=== PATIENT | female | born 1940 | race Caucasian/White ===

== ENCOUNTER 2019-04-20 09:45 | Observation (INO) ==
--- NOTE | 2019-04-08 14:39 | PAT Medication Instructions ---
Medication Instructions Date of Service April 08, 2019 Home Medications acetaminophen [Tylenol] 325 mg PO QID PRN losartan-hydrochlorothiazide 1 tab PO HS melatonin 5 mg PO HS PRN methylphenidate HCl [Ritalin] 10 mg PO BID PRN DO NOT take the morning of surgery methylphenidate HCl [Ritalin] 10 mg PO BID PRN Take morning of surgery With a small sip of water, OTHERWISE NOTHING TO EAT OR DRINK AFTER MIDNIGHT: acetaminophen [Tylenol] 325 mg PO QID PRN (if needed, may be taken up to four hours before surgery) Take evening before surgery acetaminophen [Tylenol] 325 mg PO QID PRN (if needed) losartan-hydrochlorothiazide 1 tab PO HS melatonin 5 mg PO HS PRN (if needed) methylphenidate HCl [Ritalin] 10 mg PO BID PRN (if needed) Other Notes If you have any questions please call us at [phone] or [phone] or [phone] or [phone]
--- NOTE | 2019-04-09 13:39 | Anesthesiology Consultation ---
Date of Service April 09, 2019 Assessment & Plan (1) Encounter for pre-operative examination: S/P TKA 2013 -- SAB and regional block, no issues noted on record. PCP clearance 04/14/2019: "Patient medically stable for planned procedure." Chart Review Chart Review: Acceptable Risk for Surgery and Patient seen in Pre Admission Testing Teaching & Discussion Instructed NPO after midnight before surgery, except medications with 15 cc of water. Medication instructions provided according to the [facility] guidelines. History Surgery Operation Date: 04/20/19 12:30 Proposed Procedures p Left Total Hip Replacement - Nicanor Escalante MD Height/Weight Height: 5 ft 5 in Weight: 80.4 kg Allergies Allergy/AdvReac Type Severity Reaction Status Date / Time morphine AdvReac Mild N/V Verified 03/30/19 08:06 Medications Home Medications Medication Instructions Recorded Confirmed Last Taken acetaminophen [Tylenol] 325 mg PO QID PRN 03/30/19 03/30/19 Unknown losartan-hydrochlorothiazide 1 tab PO HS 03/30/19 03/30/19 Unknown melatonin 5 mg PO HS PRN 03/30/19 03/30/19 Unknown methylphenidate HCl [Ritalin] 10 mg PO BID PRN 03/30/19 03/30/19 Unknown Past Medical History Medical History Degenerative joint disease of left hip Hypertension Interstitial lung disease Suspected on previous chest imaging. +crackles in bases on exam at [facility]. O2 94% on room air, patient asymptomatic. Kidney stones HX OF Exercise / Class Metabolic Activity II 4-5 Yardwork/Stairs/Walk up hill (Denies CP or SOB with 1 FOS, has a 3 story house and does stairs many times per day, just slow 2/2 hip pain) Past Surgical History Surgical History History of right hip replacement History of total left knee replacement Hx of cystoscopy WITH STONE BASKETING Past Anesthesia History No Hx of Anesthesia Complications and No Family Hx of Anesthesia Complications History of PONV History of PONV (2/2 morphine) and Hx of Motion Sickness Social History Smoking Status: Never smoker Do You Dip or Chew Tobacco: No Hx Alcohol Use: No Hx Substance Use: No substance use type: does not use Review of Systems Pt denies any recent chest pain, shortness of breath, palpitations, cough, fever or URI. Physical Exam Vital Signs BP: 107/69 P: 77bpm SPO2: 94% RA T: 98.0 F R: 14 ENMT Mouth: + dental restorations (many crowns), + chipped teeth (upper L molar crown is cracked) and + small oral opening; no loose teeth Thyromental Distance: > or= 3.5 Finger Breadths (3.5) Mallampati Class: III Neck normal visual inspection; neck extension not limited Respiratory normal respiratory effort Auscultation: + crackles (loud, B/L lung bases. Otherwise CTA in other lung [place].) Cardiovascular Rate/Rhythm: regular rate and regular rhythm Heart Sounds: no murmur Vessels: no carotid bruit Testing Laboratory Results 04/09/19 13:50 04/09/19 13:50 PT 10.1 Seconds (9.0-12.0) 04/09/19 13:50 INR 1.0 (0.9-1.1) 04/09/19 13:50 APTT 23.3 Seconds (21.0-31.0) 04/09/19 13:50 Blood Type A Positive 04/09/19 13:50 Antibody Screen NEGATIVE 04/09/19 13:50 Electrocardiogram Date: 04/09/19 Findings: + NSR @ (81bpm) Chest X-Ray FINDINGS: Cardiac silhouette is enlarged, unchanged. Unchanged right hemidiaphragmatic elevation. Mildly worsened peripheral predominant reticular opacities without pneumothorax, large pleural effusion or overt pulmonary edema. Chronic blunting of the posterior costophrenic angles. Degenerative changes of the shoulders and spine. Surgical clips project over the upper abdomen. IMPRESSION: 1. Cardiomegaly. 2. Progressively worsened peripheral prominent reticular opacities of the bilateral lungs are suggestive of worsened interstitial lung disease. A superimposed mild pulmonary edema or atypical pneumonitis considered less likely. This result was forwarded to the PCP for their continued monitoring and follow-up.
--- NOTE | 2019-04-09 14:17 | XRay Report ---
XR chest Pre-admission PA/Lat HISTORY: 78 years-old Female pat preoperative exam. No acute chest complaints COMPARISON: Chest radiograph 06/26/2013, CTA of the chest 11/01/2008. TECHNIQUE: PA and lateral views of the chest FINDINGS: Cardiac silhouette is enlarged, unchanged. Unchanged right hemidiaphragmatic elevation. Mildly worsen ed peripheral predominant reticular opacities without pneumothorax, large pleural effusion or overt p ulmonary edema. Chronic blunting of the posterior costophrenic angles. Degenerative changes of the sh oulders and spine. Surgical clips project over the upper abdomen. IMPRESSION: 1. Cardiomegaly. 2. Progressively worsened peripheral prominent reticular opacities of the bilateral lungs are suggest josé miguel of worsened interstitial lung disease. A superimposed mild pulmonary edema or atypical pneumoniti s considered less likely. ACT 112: Negative or not required by law. The above report was generated using voice recognition software. It may contain grammatical, syntax o r spelling errors. Electronically signed by: Edinson Jeffery M.D. 04/09/2019 2:15 PM
[2019-04-09 14:36] LABS: Basophils # (auto) 0.03 K/uL (0-0.2); Basophils % (auto) 0.3 %; Eosinophils # (auto) 0.36 K/uL (0-0.5); Eosinophils % (auto) 3.7 %; Hematocrit (blood only) 43.8 % (37-47); Hemoglobin 14.3 g/dL (12.0-16.0); Immature Granulocytes # (auto) 0.03 K/uL (0.00-0.02); Immature Granulocytes % (auto) 0.3 %; Lymphocytes # (auto) 2.19 K/uL (1.2-3.4); Lymphocytes % (auto) 22.3 %; Mean Corpuscular Hemoglobin 29.9 pg (25-34); Mean Corpuscular Hgb Conc 32.6 g/dL (32-36); Mean Corpuscular Volume 91.4 fL (80-100); Mean Platelet Volume 11.3 fL (7.4-10.4); Monocytes # (auto) 1.04 K/uL (0.11-0.59); Monocytes % (auto) 10.6 %; Neutrophils # (auto) 6.18 K/uL (1.4-6.5); Neutrophils % (auto) 62.8 %; Platelet Count 283 K/uL (130-400); RDW Coefficient of Variation 13.8 % (11.5-14.5); RDW Standard Deviation 46.4 fL (36.4-46.3); Red Blood Count 4.79 M/uL (4.2-5.4); White Blood Count 9.83 K/uL (4.8-10.8)
[2019-04-09 14:42] LABS: BUN Creatinine Ratio 32.3 (10-20); Blood Urea Nitrogen 21 mg/dl (7-18); Calcium 8.8 mg/dl (8.5-10.1); Carbon Dioxide 30 mmol/L (21-32); Chloride 106 mmol/L (98-107); Creatinine Clr Calc Pharmacy 74.8 ml/min; Est GFR (African American) 98.8; Est GFR (Non-African American) 85.2; Glucose 123 mg/dl (70-99); Potassium 3.8 mmol/L (3.5-5.1); Sodium 141 mmol/L (136-145)
[2019-04-09 14:43] LABS: C Reactive Protein < 0.29 mg/dl (0-0.29)
--- NOTE | 2019-04-09 14:46 | Electrocardiogram Report ---
Test Reason : Blood Pressure : / mmHG Vent. Rate : 081 BPM Atrial Rate : 081 BPM P-R Int : 168 ms QRS Dur : 094 ms QT Int : 406 ms P-R-T Axes : 034 050 024 degrees QTc Int : 471 ms Normal sinus rhythm Normal ECG When compared with ECG of 26-JUN-2013 14:47, No significant change was found Confirmed by Tejas Goodwin ([id number]) on 04/09/2019 2:45:49 PM Referred By: Nicanor Escalante Confirmed By:Tejas Goodwin
[2019-04-09 14:48] LABS: Partial Thromboplastin Ratio 0.9; Partial Thromboplastin Time 23.3 Seconds (21.0-31.0); Prothrombin Time 10.1 Seconds (9.0-12.0)
[~2019-04-20 09:45] MED LIST: ACETAMINOPHEN 500 MG TAB PO SCH; BUPIVACAINE 0.5 % 5 MG/1 ML PF 10ML VIAL ONE; CEFAZOLIN 2000MG 2,000 MG/15 ML SYR IV SCH; FAMOTIDINE 20 MG TAB PO SCH; GABAPENTIN 300 MG CAP PO SCH; LR 500ML BOLUS, THEN 15ML/HR IV SCH; LR 60ML/HR IV SCH; METOCLOPRAMIDE HCL 10 MG TABLET PO SCH; MIDAZOLAM HCL 1 MG/ML 2ML VIAL ONE; TRANEXAMIC ACID 1,000 MG **IV Pre-op IV SCH; fentaNYL citrate 100 MCG/2 ML VIAL ONE
[2019-04-20] MEDS ORDERED: ePHEDrine sulfate 50 MG/ML AMP IV PRN (11:34)
[2019-04-20] MEDS ORDERED: ONDANSETRON INJ 2 MG/ML 2 ML VIAL IV PRN ×2 (11:34→15:50)
[2019-04-20] MEDS ORDERED: fentaNYL citrate 100 MCG/2 ML VIAL IV PRN (11:34)
[2019-04-20] MEDS ORDERED: ATROPINE SULFATE 0.1 MG/ML 10ML SYR IV PRN (11:34)
[2019-04-20] MEDS ORDERED: BUPIVACAINE/EPINEPHRINE 0.5% MPF 1:200,000 10 ML VIAL ONE (12:07)
[2019-04-20] MEDS ORDERED: BACITRACIN INJ 50,000 UNIT VIAL ONE (12:07)
[2019-04-20] MEDS ORDERED: BUPIVACAINE 0.5 % 5 MG/1 ML PF 10ML VIAL ONE (12:32)
--- NOTE | 2019-04-20 12:36 | History & Physical Bridge Note ---
Date of Service April 20, 2019 History & Physical Bridge Note I have examined the patient, reviewed the History & Physical and in the interval since the performance of the History & Physical I have noted the following changes of clinical significance: no changes noted
[2019-04-20] MEDS ORDERED: PROPOFOL IV EMULSION 10 MG/ML 20 ML VIAL IV ONE ×2 (12:59→13:29)
[2019-04-20] MEDS ORDERED: PHENYLEPHRINE 100MCG/ML 5ML SYR ONE (13:20)
[2019-04-20] MEDS ORDERED: ePHEDrine sulfate 50 MG/ML SYR ONE (13:20)
[2019-04-20] MEDS ORDERED: MIDAZOLAM HCL 1 MG/ML 2ML VIAL ONE (13:32)
--- NOTE | 2019-04-20 14:36 | Post Operative Brief Note ---
PG Immediate Post Op with CF Date of Surgery April 20, 2019 Pre & Post Diagnosis Operation Date: 04/20/19 12:30 Pre-Op Diagnosis: Left Hip Advanced Degenerative Joint Disease Post-Op Diagnosis: Left Hip Advanced Degenerative Joint Disease I identified the patient and participated in the time-out.: Yes Procedure Operation Date: 04/20/19 12:30 Actual Procedures p Left Total Hip Arthroplasty--Uncemented(Left) - Nicanor Escalante MD Surgeon Nicanor Escalante MD Director Education Shanta, PAC Estimated Blood Loss 200 Findings Consistent with Post-Op Diagnosis Fluids 1200 cc Specimens Specimen Description: A. Left femoral head Drains Uriarte Catheter (A 16 Jordanian uriarte catheter was inserted by RANDY Otero, without difficulty, clear yellow urine obtained, output to be monitored by Anesthesia.) Anesthesia Type Spinal MAC Complications none Disposition Accompanied Patient To Recovery: Yes Disposition: Recovery Room
--- NOTE | 2019-04-20 15:06 | XRay Report ---
XR hip LT 1V CLINICAL HISTORY: OR MISCOUNT COMPARISON: None. DISCUSSION: 2 crosstable lateral views of the left hip are provided for interpretation. There is a to margie left hip arthroplasty. There is gas present within the soft tissues consistent with recent surger y. No radiopaque sponges or needles are visualized. IMPRESSION: No radiopaque sponges or needles are visualized. ACT 112: Negative or not required by law. Electronically signed by: Giovanny Mensah M.D. 04/20/2019 3:04 PM
--- NOTE | 2019-04-20 15:07 | Anesthesiology Progress Note ---
Date of Service April 20, 2019 Anesthesia Post Procedure Vital Signs Vital Signs: Temp Pulse Resp BP BP Pulse Ox 04/20/19 15:05 73 21 122/68 96 04/20/19 14:55 78 20 118/60 93 04/20/19 14:45 73 21 129/67 95 04/20/19 14:36 36.9 C 84 18 113/73 94 04/20/19 10:33 36.4 C L 75 18 149/88 H 92 Transfer of Care Handoff Completed per policy Notes Mental Status: alert / awake / arousable Patient Amnestic to Procedure: Yes Nausea / Vomiting: adequately controlled Pain: adequately controlled Airway Patency, RR, SpO2: stable & adequate BP & HR: stable & adequate Hydration State: stable & adequate Neuraxial Anesthesia: was administered and sensory block is resolving Anesthetic Complications: no major complications apparent and Pt Satisfied with anesthetic care
--- NOTE | 2019-04-20 15:09 | XRay Report ---
XR hip 1V LT w pelvis CLINICAL HISTORY: Postop hip arthroplasty COMPARISON: September 2008 DISCUSSION: There is no change in the appearance of the total right hip arthroplasty. Now evident is a total left hip arthroplasty. The acetabular and femoral components appear well seated. There is no dislocation. There are overlying skin jono. There is air present within the soft tissues. IMPRESSION: Interval total left hip arthroplasty. No dislocation. ACT 112: Negative or not required by law. Electronically signed by: Giovanny Mnesah M.D. 04/20/2019 3:07 PM
[2019-04-20] MEDS ORDERED: ALUMINUM/MAGNESIUM SUSP 30 ML UDC PO PRN (15:50)
[2019-04-20] MEDS ORDERED: NON-FORMULARY MEDICATION (Melatonin 5 MG) PO PRN (15:50)
[2019-04-20] MEDS ORDERED: HYDROmorphone INJ 0.5 MG/0.5 ML SYR IV PRN (15:50)
[2019-04-20] MEDS ORDERED: bisacodyL 10 MG SUPP PR PRN (15:50)
[2019-04-20] MEDS ORDERED: MAGNESIUM HYDROXIDE SUSP 30 ML UDC PO PRN (15:50)
[2019-04-20] MEDS ORDERED: NALOXONE HCL 0.4 MG/1 ML VIAL/CARP IV PRN (15:50)
[2019-04-20] MEDS ORDERED: METOCLOPRAMIDE HCL INJ 5 MG/ML 2 ML VIAL IV PRN (15:50)
[2019-04-20] MEDS ORDERED: METHYLPHENIDATE HCL 10 MG TABLET PO PRN (15:50)
[2019-04-20] MEDS: SODIUM CHLORIDE 0.9% 1000ML 1,000 ML IV SCH (16:58)
--- NOTE | 2019-04-20 18:31 | Operative Report ---
Post Operative Report Pre & Post Diagnosis Operation Date: 04/20/19 12:30 Pre-Op Diagnosis: Left Hip Advanced Degenerative Joint Disease Post-Op Diagnosis: Left Hip Advanced Degenerative Joint Disease I identified the patient and participated in the time-out.: Yes Procedure Operation Date: 04/20/19 12:30 Actual Procedures p Left Total Hip Arthroplasty--Uncemented(Left) - Nicanor Escalante MD Surgeon Nicanor Escalante MD Human Resources Hr Generalist Shanta, PAC Estimated Blood Loss 200 Findings Consistent with Post-Op Diagnosis Operative findings revealed advanced left hip DJD. 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 She had a large hip joint effusion. Moderate sized synovitis. Significant anterior acetabular osteophytes. Significant medial osteophyte. Fluids 1200 cc Specimens Left femoral head sent for pathology. Drains None. Anesthesia Type Spinal MAC Complications Upon drilling the holes for the sutures to be placed in the greater trochanter at the end the case the drill bit did break off inside the trochanter. I did spend about 10 minutes trying to locate this but was unsuccessful. I got an x- ray which showed a deep in the bone next of the implant deep in the bone. I decided that it was not worth the damage of destroying the bone to get this drill bit out. I cannot imagine how it would give her any problem and is it similar to a screw and we elect to leave this in. The patient was informed of this on postoperative rounds. All questions were answered. Disposition Accompanied Patient To Recovery: Yes Disposition: Recovery Room Indications Patient is a 78-year-old very active female who is about 10 years out from right hip replacement. Over the past year she is developed increased pain discomfort in her left hip that is becoming extremely painful and bothersome. It is affecting her quality of life and ability maintain an active lifestyle. She elected proceed with surgical treatment. X-rays show advanced left hip arthritis. This progressed significantly over the past year. Description of Procedure Operative implants consisted of: 1. Biomet G7 size 52 mm acetabular shell. 2. 6.5 cancellus acetabular screws 1 of 35 mm length and 120 mm length. 3. An apex hole eliminator. 4. 52 mm / 32 mm highly cross-linked polyethylene liner with a womack placed inferior and posterior. 5. Vladimir Corail size 11 KLA femoral stem. 6. A +5/32 mm ceramic articular ball. Patient was taken to the operating room identified and placed on the operating table supine position protectors were properly padded. IV antibiotics were by anesthesia team. A spinal anesthetic had been implemented holding area. Chamberlain cath was placed in sterile fashion with the patient then placed in the right lateral decubitus position. Rolls placed. Stulberg hip positioner was used for positioning. Left hip and leg were then prepped and draped in usual sterile fashion. A posterior lateral approach to the left hip was then performed through a curvilinear incision centered over the greater trochanter. Sharp dissection was carried through subcutaneous tissue down to level the IT band gluteal fascia the IT band gluteal fascia incised longitudinally in line the skin incision. The underlying greater bursa was excised. The piriformis and external rotators were tagged and taken off the posterior aspect hip joint capsule. Great care was taken throughout the procedure to protect sciatic nerve at all times. Posterior capsulotomy was then performed leaving a large flap for later repair. Hip was internally rotated and dislocated. Femoral neck osteotomy cut was made with Final Cut 12 mm above the lesser trochanter. Femoral head was removed and sent for pathology. Femur was retracted anteriorly. Attention drawn the acetabulum. The acetabular labrum was excised. The pulmonary fat was excised. Sequential reaming the acetabulum was then performed again with size 45 reamer and progressing up to 51. A 52 mm Biomet G7 acetabular shell was then placed in about 40 degrees lateral opening and 20 degrees of anteversion. It was fixed with two 6.5 cancellus acetabular screws. A trial liner was placed. Attention drawn the femur. The proximal femur was entered with a cookie-cutter followed by canal finder. Then broached beginning with size 8 and progressing up to 11. Got excellent fit and 11. A calcar reamer was used to smooth and off the calcar. Then trialed the hip and the +5/32 mm ceramic articular ball plug to provide full stability in full extension and external rotation flexion to 90 degrees internal rotation over 50 degrees. I did elect to place a womack inferior and posterior to maximize her stability in flexion. Soft tissue tension seemed appropriate. Leg lengths seem equal. I elected to place these implants. All trial implants were removed. An apex hole eliminator was placed. Highly cross-linked polyethylene liner was placed with a womack placed inferior and posterior. A Vladimir size 11 KLA femoral stem was impacted in position. +5/32 mm ceramic articular ball was placed. Hip was located once again found to be stable. Attention drawn toward closing. The wound was irrigated copious also pulsatile lavage solution. I did inject locally with 60 cc of 5% Marcaine with epinephrine. The posterior capsule and external rotators were then repaired through drill holes in the posterior trochanter with #2 Tycron stitch suture. Upon placing the inferior hole the drill bit did break off. I re-drilled a hole. I spent about 10 to 15 minutes trying to relocate the drill bit and in the bone. I did eventually take an x- ray and it was deep within the bone. I elected not to do any further damage to the bone and leave this in place as I could not imagine how it could give her any problem and further bone destruction could give her problem. Therefore we elected to leave it in place. The sutures were tied. The wound was irrigated again. The IT band gluteal fascia then closed in 1 PDS suture in a running fashion the subcutaneous tissue then closed with 2 layers the deep layer #1 Vicryl suture and subcutaneous tissues with 2-0 Dexon suture in a buried interrupted fashion the skin was closed with skin jono. Once again an x-ray was brought in to verify the location of the drill bit which was inside the bone and not anywhere in the joint. The patient then transferred to the recovery room in stable condition. The patient tolerated procedure well no additional complications. I attest to the content of the Intraoperative Record and any orders documented therein. Any exceptions are noted below.
[2019-04-20] MEDS: KETOROLAC TROMETHAMINE 15 MG/ML VIAL IV SCH ×2 (18:36→22:18)
[2019-04-20] MEDS: FERROUS GLUCONATE 324 MG TAB PO SCH (18:39)
[2019-04-20] MEDS: ASCORBIC ACID 500 MG TAB PO SCH (18:39)
[2019-04-20] MEDS: TRAMADOL HCL 50 MG TABLET PO PRN (19:14)
[2019-04-20] MEDS: CEFAZOLIN 2000MG 2,000 MG/15 ML SYR IV SCH (20:36)
[2019-04-20] MEDS ORDERED: TRANEXAMIC ACID / 0.7% NACL 1,000 MG/100 ML BAG IV SCH (20:39)
[2019-04-20] MEDS ORDERED: SENNA 8.6 MG TAB PO SCH (21:00)
[2019-04-20] MEDS ORDERED: LOSARTAN/HCTZ 50/12.5MG TAB PO SCH (21:00)
[2019-04-20] MEDS ORDERED: PRAVASTATIN SOD 20 MG TAB PO SCH (21:00)
[2019-04-20] MEDS: ASPIRIN 81 MG ECTAB PO SCH (21:36)
[2019-04-20] MEDS: ACETAMINOPHEN 500 MG TAB PO SCH (21:36)
[2019-04-20] MEDS: DOCUSATE SODIUM 100 MG CAP PO SCH (21:36)
[2019-04-21] MEDS: SODIUM CHLORIDE 0.9% 1000ML 1,000 ML IV SCH (03:07)
[2019-04-21] MEDS: TRAMADOL HCL 50 MG TABLET PO PRN ×2 (03:29→10:32)
[2019-04-21] MEDS: CEFAZOLIN 2000MG 2,000 MG/15 ML SYR IV SCH (05:03)
[2019-04-21] MEDS: KETOROLAC TROMETHAMINE 15 MG/ML VIAL IV SCH ×2 (05:04→11:00)
[2019-04-21] MEDS: ACETAMINOPHEN 500 MG TAB PO SCH ×2 (05:04→13:06)
[2019-04-21 05:35] LABS: Basophils # (auto) 0.02 K/uL (0-0.2); Basophils % (auto) 0.1 %; Eosinophils # (auto) 0.06 K/uL (0-0.5); Eosinophils % (auto) 0.4 %; Hematocrit (blood only) 36.7 % (37-47); Hemoglobin 12.1 g/dL (12.0-16.0); Immature Granulocytes # (auto) 0.04 K/uL (0.00-0.02); Immature Granulocytes % (auto) 0.3 %; Lymphocytes # (auto) 1.29 K/uL (1.2-3.4); Lymphocytes % (auto) 9.5 %; Mean Corpuscular Hemoglobin 30.2 pg (25-34); Mean Corpuscular Volume 91.5 fL (80-100); Mean Platelet Volume 10.9 fL (7.4-10.4); Monocytes # (auto) 1.32 K/uL (0.11-0.59); Monocytes % (auto) 9.7 %; Neutrophils # (auto) 10.88 K/uL (1.4-6.5); Platelet Count 240 K/uL (130-400); RDW Coefficient of Variation 13.7 % (11.5-14.5); RDW Standard Deviation 45.9 fL (36.4-46.3); Red Blood Count 4.01 M/uL (4.2-5.4); White Blood Count 13.61 K/uL (4.8-10.8)
[2019-04-21 06:07] LABS: BUN Creatinine Ratio 32.9 (10-20); Est GFR (African American) 108.9; Potassium 3.3 mmol/L (3.5-5.1)
--- NOTE | 2019-04-21 07:56 | Anesthesiology Progress Note ---
Date of Service April 21, 2019 Anesthesia Post Procedure Vital Signs Vital Signs: Temp Pulse Pulse Resp BP BP Pulse Ox 04/21/19 07:15 37.0 C 81 18 117/74 92 04/21/19 03:22 36.6 C 75 16 131/83 91 04/20/19 23:02 36.5 C 76 16 130/82 97 04/20/19 21:43 36.6 C 78 18 134/83 98 04/20/19 20:33 83 18 148/83 H 95 04/20/19 18:45 36.6 C 77 18 164/94 H 96 04/20/19 16:45 36.6 C 75 18 146/91 H 92 04/20/19 16:15 36.6 C 67 18 127/80 98 04/20/19 15:45 36.5 C 70 18 125/80 96 04/20/19 15:25 66 18 118/80 100 04/20/19 15:15 36.4 C L 68 16 118/74 100 04/20/19 15:05 73 21 122/68 96 04/20/19 14:55 78 20 118/60 93 04/20/19 14:45 73 21 129/67 95 04/20/19 14:36 36.9 C 84 18 113/73 94 04/20/19 10:33 36.4 C L 75 18 149/88 H 92 Pain Intensity Left Hip: Pain Intensity: 0 Notes Mental Status: alert / awake / arousable and participated in evaluation Patient Amnestic to Procedure: Yes Nausea / Vomiting: adequately controlled Pain: adequately controlled Airway Patency, RR, SpO2: stable & adequate BP & HR: stable & adequate Hydration State: stable & adequate Neuraxial Anesthesia: was administered and sensory block resolved Anesthetic Complications: no major complications apparent and Pt Satisfied with anesthetic care
[2019-04-21] MEDS: FERROUS GLUCONATE 324 MG TAB PO SCH (08:22)
[2019-04-21] MEDS: DOCUSATE SODIUM 100 MG CAP PO SCH (08:22)
[2019-04-21] MEDS: ASPIRIN 81 MG ECTAB PO SCH (08:23)
[2019-04-21] MEDS: ASCORBIC ACID 500 MG TAB PO SCH (08:23)
[2019-04-21] MEDS ORDERED: MULTIVITAMIN TAB PO SCH (09:00)
[2019-04-21] MEDS ORDERED: POTASSIUM CHLORIDE 20 MEQ TABCR PO ONE (13:43)
--- NOTE | 2019-04-21 13:54 | Progress Note ---
DATE: 04/21/2019 SUBJECTIVE: A 78-year-old white female postop day 1 from a left hip replacement. She is doing well. Pain has been pretty well controlled with medicines. Therapy went well. Denies any chest pain or shortness of breath. She feels like she wants to go home. OBJECTIVE: VITAL SIGNS: Temperature 37.0. Vital signs stable. GENERAL: Shows a pleasant, middle-aged female. She is lying in bed, looks comfortable. LUNGS: Clear to auscultation. HEART: Regular rate and rhythm. ABDOMEN: Soft, nontender, nondistended. EXTREMITIES: Grossly neurovascularly intact except as follows: Examination of the left hip and leg reveals the leg to be well aligned. Dressing is intact. Thigh is soft and supple. She is neurologically intact. LABORATORY DATA: Hemoglobin is 12.1. Hematocrit is 36.7. White cell count 13.61. Electrolytes are stable. Potassium is little low at 3.3. ASSESSMENT: A 78-year-old white female postop day 1 from a left hip replacement, doing pretty well. Pain is controlled. Hip is located. She is neurologically intact. Therapy went pretty well. PLAN: 1. DVT prophylaxis including thigh-high TEDs, SCDs, and aspirin twice a day. 2. PT/OT. Weight bear as tolerated. Left total hip protocol. 3. Pain control, doing well with current pain regimen. 4. Hypokalemia. We will supplement her potassium. 5. Disposition: She is hoping to be discharged to home. She has got home health setup. Likely discharge later on today if doing okay.
--- NOTE | 2019-04-24 15:48 | Discharge Summary ---
ADMITTING PHYSICIAN AND SURGEON: Dr. Nicanor Escalante. ADMITTING DIAGNOSIS: Left hip degenerative joint disease. SURGERY PERFORMED: Left total hip arthroplasty. SECONDARY DIAGNOSES: Hypertension, elevated cholesterol, arthritis, mild obesity, kidney stones. CONSULTS: None obtained. HISTORY AND PHYSICAL EXAMINATION: Well documented in the patient's chart. HOSPITAL COURSE: The patient was admitted on 04/20/2019 underwent total hip arthroplasty, tolerated the procedure well. There were no complications. She was transferred to the PACU postoperatively and later to the orthopedic floor for further care. She was given Ancef for antibiotic prophylaxis, VIMAL stockings, SCDs and aspirin for DVT prophylaxis. Hemoglobin, hematocrit and vital signs were monitored during her hospital stay and remained stable, did not require any blood transfusions. There were no complications. By postoperative day 1 she was tolerating a regular diet, pain was controlled with oral pain medicine. She was participating in physical therapy. On postop day 1 she was discharged home, set up with home health services. She was given printed discharge instructions as well as new prescriptions for extra strength Tylenol, aspirin and tramadol. Continue her home medicines with the exception of her home dosing of Tylenol and Tylenol PM, which was changed. Continue physical therapy, weightbearing as tolerated, VIMAL stockings, total hip precautions. Follow up approximately 2 weeks postop or sooner if there are any problems or concerns.
== END 2019-04-21 15:44 | disposition home health service (06) ==
LOC: 3E 09:45 → ASU 09:45

== ENCOUNTER 2019-06-20 10:27 | Inpatient (IN) ==
--- NOTE | 2019-06-20 10:54 | Emergency Department Note ---
History of Present Illness General Chief complaint: Shortness of Breath/Dyspnea Stated complaint: SOB, LOW O2 Time Seen by Provider: 06/20/19 10:41 History of Present Illness Provider complaint: Shortness of breath Onset (ago): week(s) 3 Location: chest Radiation: non-radiation Severity: mild Maximum Pain Intensity: 0 Current Pain Intensity: 0 Exacerbated By: + movement Associated symptoms: + chest pain 78-year-old female presents emergency department for shortness of breath. She states her shortness of breath is been on and off for the last 3 weeks. She states that her shortness of breath is worse with even slight exercise. She states that when she does light exercise she also has some mild chest pain. The chest pain is nonradiating. She is currently experiencing no chest pain. She states that she has a home pulse oximeter and she has been using it when she gets up and walks and her readings have been in the 80s. She denies any hemoptysis. Patient did have a recent surgery done in March for her hip replacement. No exogenous hormone usage. No anosmia, fevers, or loss of taste. No exposure to anyone who is coronavirus positive or person of interest. Home Medications Home Medications Medication Instructions Recorded Confirmed Type melatonin 5 mg PO HS PRN 03/30/19 06/20/19 History methylphenidate HCl [Ritalin] 10 mg PO BID PRN 03/30/19 06/20/19 History naproxen sodium [Aleve] 220 mg PO HS PRN 04/20/19 06/20/19 History pravastatin 20 mg PO HS 04/20/19 06/20/19 History aspirin [Ecotrin Low Strength] 0 mg PO DAILY PRN 06/20/19 06/20/19 History diphenhydramine-acetaminophen 1 tab PO HS PRN 06/20/19 06/20/19 History [Tylenol PM Extra Strength] hydrochlorothiazide 25 mg PO HS 06/20/19 06/20/19 History losartan 100 mg PO HS 06/20/19 06/20/19 History Allergies Allergy/AdvReac Type Severity Reaction Status Date / Time morphine AdvReac Mild N/V Verified 05/05/19 08:22 Past Med/Surg History Medical History Degenerative joint disease of left hip Bilateral Hypertension Interstitial lung disease Suspected on previous chest imaging. +crackles in bases on exam at PAT. O2 94% on room air, patient asymptomatic. Kidney stones HX OF Social History Preferred Language: Indonesian Communication Ability: Effective Beliefs That Will Affect Care: None marital status: / Current Living Situation: Family Feels Safe at Home: Yes Smoking Status: Never smoker Second Hand Exposure: No ; Hx Alcohol Use: No Hx Substance Use: No Review of Systems A total of 10 systems reviewed and were otherwise negative Physical Exam Vital Signs Vital Signs - 24 hr 06/20/19 10:36 06/20/19 11:52 06/20/19 12:50 Temperature 36.7 C Temperature Source Oral Pulse Rate 78 Pulse Rate [Exercises] 104 H Pulse Rate [Recovery] 94 H Pulse Rate [Resting] 86 Pulse Rate [Right Finger] Respiratory Rate 20 Respiratory Rate [Exercises] 22 Respiratory Rate [Recovery] 18 Respiratory Rate [Resting] 18 Respiratory Effort / Characteristics Non-Labored Non-Labored Respiratory Depth Normal Blood Pressure 147/102 H Blood Pressure [Right Arm] Blood Pressure Mean 117 Blood Pressure Mean [Right Arm] Blood Pressure Position [Right Arm] Pulse Oximetry 96 97 Pulse Oximetry [Exercises] 87 L Pulse Oximetry [Recovery] 92 Pulse Oximetry [Resting] 94 Oxygen Delivery Method Room Air Room Air Sepsis Recent Fever Within 48 Hours No Sepsis Action Taken by Nursing No Action Required 06/20/19 13:24 Temperature Temperature Source Pulse Rate Pulse Rate [Exercises] Pulse Rate [Recovery] Pulse Rate [Resting] Pulse Rate [Right Finger] 78 Respiratory Rate 18 Respiratory Rate [Exercises] Respiratory Rate [Recovery] Respiratory Rate [Resting] Respiratory Effort / Characteristics Spontaneous Respiratory Depth Blood Pressure Blood Pressure [Right Arm] 134/90 Blood Pressure Mean Blood Pressure Mean [Right Arm] 104 Blood Pressure Position [Right Arm] Lying Pulse Oximetry 96 Pulse Oximetry [Exercises] Pulse Oximetry [Recovery] Pulse Oximetry [Resting] Oxygen Delivery Method Room Air Sepsis Recent Fever Within 48 Hours Sepsis Action Taken by Nursing Physical Exam GENERAL: She is oriented to person, place, and time. She appears well-developed and well-nourished. She does not appear distressed. HENT: Exam performed. -Head: Normocephalic and atraumatic. -Right Ear: External ear normal. No mastoid tenderness. -Left Ear: External ear normal. No mastoid tenderness. -Mouth/Throat: The oropharynx is clear and moist. No trismus in the jaw. No dental abscesses or uvula swelling. No oropharyngeal exudate or tonsillar abscesses. EYES: Conjunctivae and EOM are normal. Pupils are equal, round, and reactive to light. Right eye exhibits no discharge. Left eye exhibits no discharge. No scleral icterus. NECK: Normal range of motion. Neck supple. No JVD present. No spinous process tenderness present. No carotid bruit present. No rigidity. No tracheal deviation and normal range of motion present. No Brudzinski's sign and no Kernig's sign noted. CV: Normal rate, regular rhythm, normal heart sounds and intact distal pulses. There is no peripheral edema. Palpable radial pulses bue. PULM/CHEST: Effort normal and breath sounds normal. No respiratory distress. No stridor. She has no wheezes. She has rales at the bases bilaterally. -Chest Wall: She exhibits no tenderness. ABD: The abdomen is soft. Bowel sounds are normal. She has no distension. No mass is present. There is no tenderness. There is no rebound, no guarding, no Bose's sign and no tenderness at McBurney's point. Rovsig negative MUSC/SKEL: Normal range of motion. There is no peripheral edema, tenderness or deformity. LYMPH: No cervical adenopathy. NEURO: She is alert and oriented to person, place, and time. She has normal stre ngth. No cranial nerve deficit or sensory deficit. Coordination and gait normal. GCS eye subscore is 4. GCS verbal subscore is 5. GCS motor subscore is 6. Cerebellar tests wnl. SKIN: Skin is warm and dry. She is not diaphoretic. PSYCH: She has a normal mood and affect. Behavior is normal. Judgment and thought content normal. Course Course 1046: The patient was evaluated in room C8. A complete history and physical exam was performed. Cardiac monitoring: An order was placed for continuous cardiac monitoring. The monitor shows a rate of 80 with sinus rhythm 1251: Vital signs stable at rest. Ambulatory pulse ox to determine that the patient's oxygen saturation did go down to 88% on room air. This quickly normalized when she was resting. The patient's labs and imaging are within normal limits, no PE. Patient has absolutely no history of fevers, anosmia,Taste, recent travel, or exposure to anyone who is COVID-19 positive or person of interest, patient is extremely extremely low risk for novel coronavirus. I did discuss this as well as the patient's labs and imaging with [facility] hospitalist Tasha ziegler PA-C stated to admit to Dr. Lowe. Administered Medications Ioversol (Optiray 320 125ml) 118 ml IV ONCE PRN PRN Reason: Interaction Checking Stop: 06/24/19 11:38 Last Admin: 06/20/19 11:39 Dose: 118 ml Documented by: [id number] Critical Care Time Critical Care Time: Yes Total Critical Care Time: 41 I have personally spent greater than 41 minutes of critical care time in the direct management of this patient. This includes bedside care, interpretation of diagnostic studies, and testing, discussion with consultants, patient, and family members, and other required patient management activities. This 41 minutes is in excess of all separately billable procedures. Medical Decision Making Laboratory Data Result diagrams: 06/20/19 10:59 06/20/19 10:59 Lab Results 06/20/19 06/20/19 06/20/19 Range/Units 10:59 10:59 10:59 WBC 10.43 (4.8-10.8) K/uL RBC 4.94 (4.2-5.4) M/uL Hgb 14.5 (12.0-16.0) g/dL Hct 45.1 (37-47) % MCV 91.3 (80-100) fL MCH 29.4 (25-34) pg MCHC 32.2 (32-36) g/dL RDW Std Deviation 47.2 H (36.4-46.3) fL RDW Coeff of Maryam 14.1 (11.5-14.5) % Plt Count 296 (130-400) K/uL MPV 10.5 H (7.4-10.4) fL Immature Gran % (Auto) 0.2 % Neut % (Auto) 65.7 % Lymph % (Auto) 23.0 % [place] % (Auto) 8.5 % Eos % (Auto) 2.4 % Baso % (Auto) 0.2 % Immature Gran # (Auto) 0.02 (0.00-0.02) K/uL Neut # (Auto) 6.85 H (1.4-6.5) K/uL Lymph # (Auto) 2.40 (1.2-3.4) K/uL [place] # (Auto) 0.89 H (0.11-0.59) K/uL Eos # (Auto) 0.25 (0-0.5) K/uL Baso # (Auto) 0.02 (0-0.2) K/uL PT 10.4 (9.0-12.0) Seconds INR 1.0 (0.9-1.1) APTT 24.2 (21.0-31.0) Seconds PTT Ratio 0.9 D-Dimer 2100 H* (0-500) ug/L FEU VBG pH (7.36-7.41) VBG pCO2 (38-50) mmHg VBG pO2 mmHg VBG HCO3 mmol/L VBG O2 Saturation % VBG Base Excess mEq/L Barometric Pressure mm/Hg Sodium 140 (136-145) mmol/L Potassium 4.1 (3.5-5.1) mmol/L Chloride 107 (98-107) mmol/L Carbon Dioxide 28 (21-32) mmol/L Anion Gap 5.0 (3-11) BUN 21 H (7-18) mg/dl Creatinine 0.56 L (0.6-1.2) mg/dl Est Cr Clr Drug Dosing 88.3 ml/min Est GFR ( Amer) 104.2 Est GFR (Non-Af Amer) 89.9 BUN/Creatinine Ratio 37.2 H (10-20) Glucose 108 H (70-99) mg/dl Calcium 9.3 (8.5-10.1) mg/dl Troponin I < 0.015 (0-0.045) ng/ml NT-Pro-B Natriuret Pep 48 (0-1800) pg/ml Lipase 88 (73-393) U/L 06/20/19 Range/Units 11:07 WBC (4.8-10.8) K/uL RBC (4.2-5.4) M/uL Hgb (12.0-16.0) g/dL Hct (37-47) % MCV (80-100) fL MCH (25-34) pg MCHC (32-36) g/dL RDW Std Deviation (36.4-46.3) fL RDW Coeff of Maryam (11.5-14.5) % Plt Count (130-400) K/uL MPV (7.4-10.4) fL Immature Gran % (Auto) % Neut % (Auto) % Lymph % (Auto) % [place] % (Auto) % Eos % (Auto) % Baso % (Auto) % Immature Gran # (Auto) (0.00-0.02) K/uL Neut # (Auto) (1.4-6.5) K/uL Lymph # (Auto) (1.2-3.4) K/uL [place] # (Auto) (0.11-0.59) K/uL Eos # (Auto) (0-0.5) K/uL Baso # (Auto) (0-0.2) K/uL PT (9.0-12.0) Seconds INR (0.9-1.1) APTT (21.0-31.0) Seconds PTT Ratio D-Dimer (0-500) ug/L FEU VBG pH 7.42 H (7.36-7.41) VBG pCO2 45 (38-50) mmHg VBG pO2 39 mmHg VBG HCO3 29 mmol/L VBG O2 Saturation 70.8 % VBG Base Excess 3.5 mEq/L Barometric Pressure 732.6 mm/Hg Sodium (136-145) mmol/L Potassium (3.5-5.1) mmol/L Chloride (98-107) mmol/L Carbon Dioxide (21-32) mmol/L Anion Gap (3-11) BUN (7-18) mg/dl Creatinine (0.6-1.2) mg/dl Est Cr Clr Drug Dosing ml/min Est GFR ( Amer) Est GFR (Non-Af Amer) BUN/Creatinine Ratio (10-20) Glucose (70-99) mg/dl Calcium (8.5-10.1) mg/dl Troponin I (0-0.045) ng/ml NT-Pro-B Natriuret Pep (0-1800) pg/ml Lipase (73-393) U/L Imaging Data Radiologist's Impression: XR chest 2V PA/lateral CLINICAL HISTORY: Chest pain. Shortness of breath with exertion. COMPARISON STUDY: Chest radiograph April 09, 2019. FINDINGS: Mild elevation of the right hemidiaphragm is unchanged. Cardiomediastinal silhouette is stable. There is suggestion of lower lung volume loss. Basilar and peripheral predominant interstitial thickening is similar to prior chest radiograph of April 09, 2019. No superimposed consolidation is identified. IMPRESSION: Interstitial thickening and lower lobe volume loss which suggests interstitial lung disease with possible underlying pulmonary fibrosis. No significant change since prior chest radiograph. No superimposed consolidation. ACT 112: Negative or not required by law. Electronically signed by: Richard Reich M.D. 06/20/2019 11:39 AM Dictated: 06/20/19 1137 Transcribed: 06/20/19 1137 ECG Data Rate (beats per minute): 79 Rhythm: + normal sinus ECG Intervals/blocks: + Normal QRS, + Normal RI and + Normal QT-c ECG ST segments: + Normal ST segments and + T-wave inversions (Lead III only) Change: no significant change (From EKG done on April 09, 2019) MDM Narrative Vital signs stable at rest. Ambulatory pulse ox to determine that the patient's oxygen saturation did go down to 88% on room air. This quickly normalized when she was resting. The patient's labs and imaging are within normal limits, no PE. Patient has absolutely no history of fevers, anosmia,Taste, recent travel, or exposure to anyone who is COVID-19 positive or person of interest, patient is extremely extremely low risk for novel coronavirus. I did discuss this as well as the patient's labs and imaging with [facility] hospitalist Tasha ziegler PA-C stated to admit to Dr. Lowe. Impression & Plan Hypoxia, SHAH (dyspnea on exertion) Discharge Plan Visit Data Chief Complaint: Shortness of Breath/Dyspnea Stated Complaint: SOB, LOW O2 ED Provider: Leonard Celeste Discharge Problem: Hypoxia, SHAH (dyspnea on exertion) Patient Disposition: Being Evaluated by Hospitalist Forms Stand Alone Forms: My [facility] Prescriptions Prescriptions: No Action methylphenidate HCl [Ritalin] 10 mg Tablet 10 mg PO BID PRN (Reason: FOCUSSING) RF: 0 melatonin 5 mg Tablet 5 mg PO HS PRN (Reason: Sleep) RF: 0 naproxen sodium [Aleve] 220 mg Tablet 220 mg PO HS PRN (Reason: Pain) RF: 0 pravastatin 20 mg Tablet 20 mg PO HS RF: 0 aspirin [Ecotrin Low Strength] 81 mg tablet,delayed release (DR/EC) 0 mg PO DAILY PRN (Reason: Other) RF: 0 hydrochlorothiazide 25 mg tablet 25 mg PO HS RF: 0 diphenhydramine-acetaminophen [Tylenol PM Extra Strength] 25-500 mg Tablet 1 tab PO HS PRN (Reason: Sleep and Pain) RF: 0 losartan 100 mg tablet 100 mg PO HS RF: 0 Referrals Referrals: Frederick Mariee DO [Primary Care Provider] -
[2019-06-20 11:13] LABS: Basophils # (auto) 0.02 K/uL (0-0.2); Basophils % (auto) 0.2 %; Eosinophils # (auto) 0.25 K/uL (0-0.5); Eosinophils % (auto) 2.4 %; Hematocrit (blood only) 45.1 % (37-47); Hemoglobin 14.5 g/dL (12.0-16.0); Immature Granulocytes # (auto) 0.02 K/uL (0.00-0.02); Immature Granulocytes % (auto) 0.2 %; Mean Corpuscular Hemoglobin 29.4 pg (25-34); Mean Corpuscular Hgb Conc 32.2 g/dL (32-36); Mean Corpuscular Volume 91.3 fL (80-100); Mean Platelet Volume 10.5 fL (7.4-10.4); Monocytes # (auto) 0.89 K/uL (0.11-0.59); Monocytes % (auto) 8.5 %; Neutrophils # (auto) 6.85 K/uL (1.4-6.5); Neutrophils % (auto) 65.7 %; Platelet Count 296 K/uL (130-400); RDW Coefficient of Variation 14.1 % (11.5-14.5); RDW Standard Deviation 47.2 fL (36.4-46.3); Red Blood Count 4.94 M/uL (4.2-5.4); White Blood Count 10.43 K/uL (4.8-10.8)
[2019-06-20 11:20] LABS: Base Excess VBG 3.5 mEq/L; Oxygen Saturation VBG 70.8 %; pH VBG 7.42 (7.36-7.41)
[2019-06-20 11:28] LABS: Partial Thromboplastin Ratio 0.9; Partial Thromboplastin Time 24.2 Seconds (21.0-31.0); Prothrombin Time 10.4 Seconds (9.0-12.0)
[2019-06-20 11:30] LABS: BUN Creatinine Ratio 37.2 (10-20); Blood Urea Nitrogen 21 mg/dl (7-18); Calcium 9.3 mg/dl (8.5-10.1); Carbon Dioxide 28 mmol/L (21-32); Chloride 107 mmol/L (98-107); Creatinine Clr Calc Pharmacy 88.3 ml/min; Est GFR (African American) 104.2; Est GFR (Non-African American) 89.9; Glucose 108 mg/dl (70-99); Lipase 88 U/L (73-393); Potassium 4.1 mmol/L (3.5-5.1); Sodium 140 mmol/L (136-145)
[2019-06-20 11:33] LABS: D Dimer 2100 ug/L FEU (0-500)
[2019-06-20 11:34] LABS: NT Pro B Type Natriuretic Pept 48 pg/ml (0-1800); Troponin I < 0.015 ng/ml (0-0.045)
[2019-06-20] MEDS ORDERED: OPTIRAY 320 125ml IV PRN (11:39)
--- NOTE | 2019-06-20 11:40 | XRay Report ---
XR chest 2V PA/lateral CLINICAL HISTORY: Chest pain. Shortness of breath with exertion. COMPARISON STUDY: Chest radiograph April 09, 2019. FINDINGS: Mild elevation of the right hemidiaphragm is unchanged. Cardiomediastinal silhouette is sta ble. There is suggestion of lower lung volume loss. Basilar and peripheral predominant interstitial t hickening is similar to prior chest radiograph of April 09, 2019. No superimposed consolidation is identified. IMPRESSION: Interstitial thickening and lower lobe volume loss which suggests interstitial lung disea se with possible underlying pulmonary fibrosis. No significant change since prior chest radiograph. N o superimposed consolidation. ACT 112: Negative or not required by law. Electronically signed by: Richard Reich M.D. 06/20/2019 11:39 AM
--- NOTE | 2019-06-20 12:18 | CT Scan Report ---
CT ANGIOGRAPHY OF THE CHEST, PULMONARY EMBOLUS PROTOCOL CLINICAL HISTORY: Shortness of breath. Chest pain. COMPARISON STUDY: Chest CT November 01, 2008. Chest radiograph 04/09/2019. TECHNIQUE: Following IV administration of 118 mL of Optiray-320, helical axial images of the chest we re obtained utilizing the pulmonary embolus protocol. Maximal intensity projections and sagittal and coronal reformats were viewed on an independent 3D workstation. IV contrast was administered withou t complication. Automated exposure control was utilized for the study. A dose lowering technique wa s utilized adhering to the principles of ALARA. CT DOSE: 289.88 mGy.cm FINDINGS: No pulmonary emboli are identified. Mild dilatation of the ascending aorta, measuring 4.1 cm, is noted. There is no thoracic or dissection. Moderate cardiomegaly is noted. There is no pericar dial effusion. Central airways are patent. No consolidation is present. There is no pneumothorax or p leural effusion. Note is made of basilar and peripheral predominant subpleural reticulation, groundgl ass opacity and honeycombing which has progressed since exam of November 01, 2018. Prominent mediasti nal bilateral hilar lymph nodes are unchanged. Gallbladder is surgically absent. IMPRESSION: 1. No pulmonary emboli identified. 2. Progression of basilar predominant subpleural reticulation, groundglass opacity and honeycombing c onsistent with interstitial lung disease with pulmonary fibrosis since CT of November 01, 2018. No velazquez perimposed consolidation. 3. Mild dilatation of the ascending aorta. No thoracic aortic dissection. Moderate cardiomegaly. ACT 112: Negative or not required by law. Electronically signed by: Richard Reich M.D. 06/20/2019 12:16 PM
[2019-06-20] MEDS ORDERED: METHYLPHENIDATE HCL 10 MG TABLET PO PRN (13:45)
--- NOTE | 2019-06-20 13:49 | History & Physical Report ---
Date of Service June 20, 2019 Assessment & Plan Admission and Anticipated Discharge Date Admission Date: 78 year old female with history of Hypertension, HLD, Chronic Rhinitis, ADHD presenting with progressive shortness of breath associated with chest pain for several weeks. EXERTIONAL DYSPNEA, HYPOXIA LIKELY SECONDARY TO UNDERLYING INTERSTITIAL LUNG DISEASE afebrile, no leukocytosis CT chest: 1. No pulmonary emboli identified. 2. Progression of basilar predominant subpleural reticulation, groundglass opacity and honeycombing consistent with interstitial lung disease with pulmonary fibrosis since CT of November 01, 2018. No superimposed consolidation. 3. Mild dilatation of the ascending aorta. No thoracic aortic dissection. Moderate cardiomegaly. Solumedrol 40mg IVq12h will need 2 step exercise test prior to discharge Presentation Designer consulted CHEST PAIN, POSSIBLY FROM HYPOXIA, R/O ANGINA associated with exertion troponin x 1 negative, EKG no signs of acute ischemia trend troponins, check echo will consult Assistant Superintendent For Curriculum ELEVATED D DIMER CT chest: negative for PE recent hip surgery 03/2019 check Doppler US of the LE to r/o DVT HYPERTENSION HOLD Losartan, HCTZ as patient just received IV contrast DYSLIPIDEMIA continue Pravastatin ADHD continue Ritalin DVT Prophylaxis Lovenox SC Code Status Full Code Disposition anticipate d/c home when medically stable will need 2 step exercise test History of Present Illness 78 year old female with history of Hypertension, HLD, Chronic Rhinitis, ADHD presenting with progressive shortness of breath associated with chest pain for several weeks. Patient states for the past several weeks, she has been experiencing shortness of breath with minimal exertion associated with progression of cough, productive of yellow phlegm which she has had for years, as well as chest discomfort- substernal, 'squeezing'. She uses her pulse oximeter after going up and down her stairs which shows 85%. Also reports sensation of "heartbeat skipping" with exertion. No fever/chills, no recent travels. Her daughter in law tested Negative for coronavirus 2 weeks ago. Progression of symptoms prompted ER consult. CT chest: 1. No pulmonary emboli identified. 2. Progression of basilar predominant subpleural reticulation, groundglass opacity and honeycombing consistent with interstitial lung disease with pulmonary fibrosis since CT of November 01, 2018. No superimposed consolidation. 3. Mild dilatation of the ascending aorta. No thoracic aortic dissection. Moderate cardiomegaly. Troponin: Negative EKG: no signs of acute ischemia On exam, patient seen resting in bed, comfortable, not in distress. States she feels fine resting but symptoms occur with minimal exertion. Denies active chest pain, dyspnea, dizziness, nausea. No other symptoms. Primary Care Provider: Frederick Mariee DO Allergies Allergy/AdvReac Type Severity Reaction Status Date / Time morphine AdvReac Mild N/V Verified 05/05/19 08:22 Home Medications Home Medications Medication Instructions Recorded Confirmed Type melatonin 5 mg PO HS PRN 03/30/19 06/20/19 History methylphenidate HCl [Ritalin] 10 mg PO BID PRN 03/30/19 06/20/19 History naproxen sodium [Aleve] 220 mg PO HS PRN 04/20/19 06/20/19 History pravastatin 20 mg PO HS 04/20/19 06/20/19 History aspirin [Ecotrin Low Strength] 0 mg PO DAILY PRN 06/20/19 06/20/19 History diphenhydramine-acetaminophen 1 tab PO HS PRN 06/20/19 06/20/19 History [Tylenol PM Extra Strength] hydrochlorothiazide 25 mg PO HS 06/20/19 06/20/19 History losartan 100 mg PO HS 06/20/19 06/20/19 History Past Med/Surg History Medical History Degenerative joint disease of left hip Bilateral Hypertension Interstitial lung disease Suspected on previous chest imaging. +crackles in bases on exam at PAT. O2 94% on room air, patient asymptomatic. Kidney stones HX OF Social History Preferred Language: Bengali Communication Ability: Effective Beliefs That Will Affect Care: None marital status: / Current Living Situation: Family Other Information That Helps Us Care for You: No Feels Safe at Home: Yes Safety Concerns: Feels Safe At This Time Smoking Status: Never smoker Second Hand Exposure: No ; Hx Alcohol Use: No Hx Substance Use: No Review of Systems Review of Systems: All systems reviewed & are unremarkable except as noted in HPI & below Physical Exam Physical Exam: General- oriented x 3, not in distress, speaks in sentences with no effort or accessory muscle use Head- atraumatic Eyes- PERRL, EOMI, anicteric ENT- oropharynx clear Neck- supple, no JVD, no adenopathy, no thyromegaly; carotids +2/2, no bruits appreciated Lungs- (+) rales bilateral bases no wheezing Heart- normal rate, regular rhythm; no murmur, no gallop, no rub appreciated Abdomen- normal bowel sounds, nondistended, soft, nontender, no masses or hepatosplenomegaly Extremities- no pretibial edema, no calf tenderness; peripheral pulses intact Neuro- alert, oriented x 3; CN 2-12 grossly intact; motor 5/5 bilaterally; sensation 100% on all extremities; no other gross focal neurologic deficits Skin- warm & dry Results & Data Results & Data ([facility]) Vital Signs (Past 12 Hours) Vital Signs Temp Pulse Pulse Pulse Pulse Pulse Resp 06/20/19 13:24 78 18 06/20/19 12:50 104 H 94 H 86 06/20/19 11:52 06/20/19 10:36 36.7 C 78 20 Resp Resp Resp BP BP Pulse Ox Pulse Ox 06/20/19 13:24 134/90 96 06/20/19 12:50 22 18 18 87 L 06/20/19 11:52 97 06/20/19 10:36 147/102 H 96 Pulse Ox Pulse Ox 06/20/19 13:24 06/20/19 12:50 92 94 06/20/19 11:52 06/20/19 10:36 Laboratory Results Laboratory Results - last 24 hr 06/20/19 06/20/19 06/20/19 10:59 10:59 10:59 WBC 10.43 RBC 4.94 Hgb 14.5 Hct 45.1 MCV 91.3 MCH 29.4 MCHC 32.2 RDW Std Deviation 47.2 H RDW Coeff of Maryam 14.1 Plt Count 296 MPV 10.5 H Immature Gran % (Auto) 0.2 Neut % (Auto) 65.7 Lymph % (Auto) 23.0 [place] % (Auto) 8.5 Eos % (Auto) 2.4 Baso % (Auto) 0.2 Immature Gran # (Auto) 0.02 Neut # (Auto) 6.85 H Lymph # (Auto) 2.40 [place] # (Auto) 0.89 H Eos # (Auto) 0.25 Baso # (Auto) 0.02 PT 10.4 INR 1.0 APTT 24.2 PTT Ratio 0.9 D-Dimer 2100 H* VBG pH VBG pCO2 VBG pO2 VBG HCO3 VBG O2 Saturation VBG Base Excess Barometric Pressure Sodium 140 Potassium 4.1 Chloride 107 Carbon Dioxide 28 Anion Gap 5.0 BUN 21 H Creatinine 0.56 L Est Cr Clr Drug Dosing 88.3 Est GFR ( Amer) 104.2 Est GFR (Non-Af Amer) 89.9 BUN/Creatinine Ratio 37.2 H Glucose 108 H Calcium 9.3 Troponin I < 0.015 NT-Pro-B Natriuret Pep 48 Lipase 88 06/20/19 11:07 WBC RBC Hgb Hct MCV MCH MCHC RDW Std Deviation RDW Coeff of Maryam Plt Count MPV Immature Gran % (Auto) Neut % (Auto) Lymph % (Auto) [place] % (Auto) Eos % (Auto) Baso % (Auto) Immature Gran # (Auto) Neut # (Auto) Lymph # (Auto) [place] # (Auto) Eos # (Auto) Baso # (Auto) PT INR APTT PTT Ratio D-Dimer VBG pH 7.42 H VBG pCO2 45 VBG pO2 39 VBG HCO3 29 VBG O2 Saturation 70.8 VBG Base Excess 3.5 Barometric Pressure 732.6 Sodium Potassium Chloride Carbon Dioxide Anion Gap BUN Creatinine Est Cr Clr Drug Dosing Est GFR ( Amer) Est GFR (Non-Af Amer) BUN/Creatinine Ratio Glucose Calcium Troponin I NT-Pro-B Natriuret Pep Lipase ECG Additional Comments: sinus rhythm, HR 81, no signs of acute ischemia or infarct Code Status & VTE Plan VTE Prophylaxis Plan VTE Prophylaxis will be ordered: Yes
--- NOTE | 2019-06-20 16:46 | Ultrasound Report ---
BILATERAL LOWER EXTREMITY VENOUS DOPPLER CLINICAL HISTORY: elevated d dimer, recent surgery, r/o DVT COMPARISON STUDY: No previous studies for comparison. TECHNIQUE: Sonography of the deep venous system of the bilateral lower extremities was performed. Co mpression and augmentation were evaluated. FINDINGS: The bilateral common femoral, superficial femoral and popliteal veins were compressible. A ugmentation was normal. Flow was shown within the deep calf vessels. Incidental note is made of a 4.5 x 2.1 x 1.1 cm left popliteal cyst. IMPRESSION: 1. No evidence of deep venous thrombus within the bilateral lower extremities. 2. 4.5 x 2.1 x 1.1 cm left popliteal cyst. ACT 112: Negative or not required by law. Electronically signed by: Richard Reich M.D. 06/20/2019 4:45 PM
[2019-06-20] MEDS ORDERED: ONDANSETRON INJ 2 MG/ML 2 ML VIAL IV PRN (16:54)
[2019-06-20] MEDS ORDERED: ENOXAPARIN INJ 40 MG/0.4 ML SYR SQ SCH (16:54)
[2019-06-20] MEDS ORDERED: ACETAMINOPHEN 500 MG TAB PO PRN (17:14)
[2019-06-20] MEDS: methylPREDNISolone 40 MG in SYRINGE 0 ML IV SCH (17:47)
[2019-06-20] MEDS ORDERED: HydrALAZINE HCL 20 MG/ML VIAL IV PRN (17:55)
[2019-06-20] MEDS ORDERED: LOSARTAN POTASSIUM 50 MG TAB PO SCH (21:00)
[2019-06-20] MEDS ORDERED: PRAVASTATIN SOD 20 MG TAB PO SCH (21:00)
[2019-06-20] MEDS ORDERED: hydroCHLOROthiazide 25 MG TAB PO SCH (21:00)
[2019-06-20] MEDS ORDERED: AMLODIPINE BESYLATE 5 MG TAB PO SCH (21:00)
[2019-06-20] MEDS: ACETAMINOPHEN 325 MG TAB PO PRN (23:32)
[2019-06-21] MEDS: methylPREDNISolone 40 MG in SYRINGE 0 ML IV SCH (05:39)
[2019-06-21] MEDS: ACETAMINOPHEN 325 MG TAB PO PRN ×2 (06:32→12:11)
--- NOTE | 2019-06-21 08:42 | Hospitalist Progress Note ---
Date of Service June 21, 2019 Assessment & Plan (1) SHAH (dyspnea on exertion): Admission Date: 78 year old female with history of Hypertension, HLD, Chronic Rhinitis, ADHD presenting with progressive shortness of breath associated with chest pain for several weeks. EXERTIONAL DYSPNEA, HYPOXIA LIKELY SECONDARY TO UNDERLYING INTERSTITIAL LUNG DISEASE O2 sat 87% with ambulation at the ER afebrile, no leukocytosis CT chest: 1. No pulmonary emboli identified. 2. Progression of basilar predominant subpleural reticulation, groundglass opacity and honeycombing consistent with interstitial lung disease with pulmonary fibrosis since CT of November 01, 2018. No superimposed consolidation. 3. Mild dilatation of the ascending aorta. No thoracic aortic dissection. Moderate cardiomegaly. Solumedrol 40mg IVq12h started 2 step exercise test prior to discharge awaiting Dimensional Inspector recommendations CHEST PAIN, POSSIBLY FROM HYPOXIA, R/O ANGINA associated with exertion troponin x 3 negative, EKG no signs of acute ischemia echo pending Rooms Director consulted ELEVATED D DIMER CT chest: negative for PE recent hip surgery 03/2019 Doppler US of the LE : negative for DVT HYPERTENSION HOLD Losartan, HCTZ as patient just received IV contrast replaced with Amlodipine 5mg for today crea stable resume usual Losartan, HCTZ tomorrow DYSLIPIDEMIA continue Pravastatin ADHD continue Ritalin DVT Prophylaxis Lovenox SC Code Status Full Code Disposition anticipate d/c home today will need 2 step exercise test Admission and Anticipated Discharge Date Admission Date: June 20, 2019 Subjective ff up for exertional dyspnea, chest discomfort seen sitting up in bed, comfortable no active chest pain, dyspnea, palpitations, dizziness states she feels better today ambulates to the bathroom with no problems reports mild frontal headache, improving no fever/chills, sputum no other symptoms would like to be discharged today if possible Review of Systems Review of Systems: All systems reviewed & are unremarkable except as noted in HPI & below Physical Exam Physical Exam: General- oriented x 3, not in distress, speaks in sentences with no effort or accessory muscle use Eyes- anicteric Neck- no JVD Lungs- (+) fine crackles at the bases no wheezing Heart- normal rate, regular rhythm; no murmurs Abdomen- normal bowel sounds, nondistended, soft, nontender Extremities- no pretibial edema, no calf tenderness Neuro- alert, oriented x 3; no gross focal neurologic deficits Skin- warm & dry Results & Data Results & Data ([facility]) Vital Signs (Past 12 Hours) Vital Signs Temp Pulse Pulse Resp BP Pulse Ox 06/21/19 08:16 79 06/21/19 07:23 36.5 C 82 20 154/101 H 93 06/21/19 04:16 36.4 C L 86 18 109/68 94 06/20/19 23:55 104 H 06/20/19 23:50 36.5 C 82 18 159/89 H 93 Laboratory Results Laboratory Results - last 24 hr 06/20/19 06/20/19 06/20/19 10:59 10:59 10:59 WBC 10.43 RBC 4.94 Hgb 14.5 Hct 45.1 MCV 91.3 MCH 29.4 MCHC 32.2 RDW Std Deviation 47.2 H RDW Coeff of Maraym 14.1 Plt Count 296 MPV 10.5 H Immature Gran % (Auto) 0.2 Neut % (Auto) 65.7 Lymph % (Auto) 23.0 Addison % (Auto) 8.5 Eos % (Auto) 2.4 Baso % (Auto) 0.2 Immature Gran # (Auto) 0.02 Neut # (Auto) 6.85 H Lymph # (Auto) 2.40 Addison # (Auto) 0.89 H Eos # (Auto) 0.25 Baso # (Auto) 0.02 PT 10.4 INR 1.0 APTT 24.2 PTT Ratio 0.9 D-Dimer 2100 H* VBG pH VBG pCO2 VBG pO2 VBG HCO3 VBG O2 Saturation VBG Base Excess Barometric Pressure Sodium 140 Potassium 4.1 Chloride 107 Carbon Dioxide 28 Anion Gap 5.0 BUN 21 H Creatinine 0.56 L Est Cr Clr Drug Dosing 88.3 Est GFR ( Amer) 104.2 Est GFR (Non-Af Amer) 89.9 BUN/Creatinine Ratio 37.2 H Glucose 108 H Calcium 9.3 Troponin I < 0.015 NT-Pro-B Natriuret Pep 48 Lipase 88 06/20/19 06/20/19 06/20/19 11:07 17:03 22:54 WBC RBC Hgb Hct MCV MCH MCHC RDW Std Deviation RDW Coeff of Maryam Plt Count MPV Immature Gran % (Auto) Neut % (Auto) Lymph % (Auto) Addison % (Auto) Eos % (Auto) Baso % (Auto) Immature Gran # (Auto) Neut # (Auto) Lymph # (Auto) Addison # (Auto) Eos # (Auto) Baso # (Auto) PT INR APTT PTT Ratio D-Dimer VBG pH 7.42 H VBG pCO2 45 VBG pO2 39 VBG HCO3 29 VBG O2 Saturation 70.8 VBG Base Excess 3.5 Barometric Pressure 732.6 Sodium Potassium Chloride Carbon Dioxide Anion Gap BUN Creatinine Est Cr Clr Drug Dosing Est GFR ( Amer) Est GFR (Non-Af Amer) BUN/Creatinine Ratio Glucose Calcium Troponin I < 0.015 < 0.015 NT-Pro-B Natriuret Pep Lipase
--- NOTE | 2019-06-21 09:14 | XCELERA ---
[id number]
--- NOTE | 2019-06-21 10:23 | Electrocardiogram Report ---
Test Reason : Blood Pressure : / mmHG Vent. Rate : 079 BPM Atrial Rate : 079 BPM P-R Int : 160 ms QRS Dur : 098 ms QT Int : 388 ms P-R-T Axes : 019 006 007 degrees QTc Int : 444 ms Normal sinus rhythm Normal ECG When compared with ECG of 09-APR-2019 13:47, No significant change was found Confirmed by Vishal Murillo ([id number]) on 06/21/2019 10:22:40 AM Referred By: REFERRED SELF Confirmed By:Vishal Murillo
--- NOTE | 2019-06-21 12:41 | Cardiology Consultation ---
Date of Consultation June 21, 2019 Assessment & Plan (1) SHAH (dyspnea on exertion): (2) Hypoxia: (3) Interstitial lung disease: I had a long discussion with the patient regarding her exertional dyspnea and results of CT chest demonstrating interstitial lung disease. Pulmonary etiology of symptoms is most likely. Further risk stratification from a cardiovascular perspective will be performed with outpatient dobutamine stress echocardiography. No medication changes from a cardiovascular perspective at this time. I will arrange for outpatient stress testing and follow-up. Recommend pulmonary consultation. Thank you for allowing me to participate in the care of your patient. History of Present Illness Reason for Consultation: Shortness of breath Requesting Physician: Dr. Lowe Attending Physician: Estuadro Lowe MD History of Present Illness 78-year-old female presented to the emergency department progressive shortness of breath. She notes occasional chest tightness associated with dyspnea. Denies palpitations, lightheadedness, dizziness, syncope, or near syncope. Denies personal history of coronary disease, congestive heart failure, diabetes, or rheumatic fever as a child. CT of the chest performed on admission negative for pulmonary embolus, however, describes evidence of bilateral pulmonary fibrosis/interstitial lung disease. Patient denies orthopnea, PND, lower extremity edema, or weight gain. Preliminary review of resting 2D transthoracic echocardiogram demonstrates preserved LV systolic function without significant valvular pathology. No ischemic ECG changes on admission. Telemetry demonstrates sinus rhythm without sustained dysrhythmia. Occasional ventricular and atrial ectopy noted. Allergies Allergy/AdvReac Type Severity Reaction Status Date / Time morphine AdvReac Mild N/V Verified 05/05/19 08:22 Home Medications Home Medications Medication Instructions Recorded Confirmed Type melatonin 5 mg PO HS PRN 03/30/19 06/20/19 History methylphenidate HCl [Ritalin] 10 mg PO BID PRN 03/30/19 06/20/19 History pravastatin 20 mg PO HS 04/20/19 06/20/19 History diphenhydramine-acetaminophen 1 tab PO HS PRN 06/20/19 06/20/19 History [Tylenol PM Extra Strength] hydrochlorothiazide 25 mg PO HS 06/20/19 06/20/19 History losartan 100 mg PO HS 06/20/19 06/20/19 History prednisone 40 mg PO DAILY #10 tab 06/21/19 Rx Patient History Medical History (Updated 06/21/19 @ 13:50 by Mikey Fang MD) Degenerative joint disease of left hip Bilateral Diastolic heart failure Hypertension Interstitial lung disease Suspected on previous chest imaging. +crackles in bases on exam at PAT. O2 94% on room air, patient asymptomatic. Kidney stones HX OF Surgical History History of cataract extraction with lens replacement (Acute) History of right hip replacement History of total left knee replacement Hx of cystoscopy WITH STONE BASKETING Social History Preferred Language: Ghanaian Communication Ability: Effective Beliefs That Will Affect Care: None marital status: / Current Living Situation: Family Feels Safe at Home: Yes Smoking Status: Never smoker Second Hand Exposure: No ; Hx Alcohol Use: No Hx Substance Use: No Review of Systems Review of Systems: All systems reviewed & are unremarkable except as noted in HPI & below Physical Exam Constitutional: well developed and well nourished Respiratory: normal respiratory effort; no respiratory distress and no labored breathing Auscultation: + crackles (Bilateral base and midlung [place].); no rales, no rhonchi and no wheezes Cardiovascular: Rate/Rhythm: regular rate and regular rhythm Heart Sounds: normal S1 and normal S2; no gallop, no murmur and no cardiac rub Palpation: normal PMI Vessels: no JVD and no carotid bruit Extremities: no edema Gastrointestinal (Abdomen): Inspection/Auscultation: normal bowel sounds; abdomen not distended Percussion/Palpation: abdomen soft; abdomen nontender, no guarding and abdomen not rigid Musculoskeletal: Extremities: strength 5/5 throughout Skin: no rashes, warm and dry Neurologic: moves all extremities; no focal motor deficits Speech / Cognition: normal speech Psychiatric: A+Ox3, euthymic affect Results & Data ([facility]) Vital Signs (Past 12 Hours) Vital Signs Temp Pulse Pulse Resp BP BP Pulse Ox 06/21/19 11:00 36.5 C 103 H 18 161/81 H 90 06/21/19 08:16 79 06/21/19 07:23 36.5 C 82 20 154/101 H 93 06/21/19 04:16 36.4 C L 86 18 109/68 94
--- NOTE | 2019-06-21 13:42 | Pulmonary Consultation ---
Date of Consultation June 21, 2019 Assessment & Plan (1) Interstitial lung disease: 78-year-old female with a history of chronic interstitial lung findings dating back to 2008 who presents with exertional dyspnea and hypoxemia. She likely has idiopathic pulmonary fibrosis based on her chest imaging. I am sending off for serological testing to evaluate for rheumatological disease and vasculitis. I think these are unlikely given the lack of rheumatism based on her physical exam and symptoms. She will need outpatient pulmonary function testing and a 6-minute walk distance. She is undergoing a two-step evaluation currently to determine if she needs to be sent home with oxygen. I suspect that she will need oxygen with exertion. I went over this with her at length that she was quite anxious about going home with oxygen given that her mother from lung disease. She denies any gastric reflux and thus I do not think that she needs a PPI at present. She may potentially be a candidate for anti- fibrotic therapy such as pirfenidone or nintedanib. We will discuss this more in outpatient setting. I will obtain a liver function test so that we have a baseline for when we start anti-fibrotic therapy. She will also need a 6-minute walk distance as an outpatient. Weight loss is advisable as well. Echocardiogram did not demonstrate any evidence of right ventricular failure or pulmonary hypertension. She does have grade 1 diastolic dysfunction and may need Lasix on a as needed basis. Cardiology work-up as an outpatient as enumerated in Dr. Vanessa's note. I think she is safe to be discharged home with home oxygen at this point and she can be sent with 40 mg daily of prednisone for a total of 5 days. I did certified drug counselor the patient regarding her diagnosis and treatment plan and she expressed understanding. I also went over the results and test with the patient's [id number] over the phone. Greater than 50% of the time was spent [id number] with the patient counseling them on their diagnosis and treatment plan. This note was dictated using voice recognition software and may include grammatical errors, extra words, word substitutions and other inaccuracies due to errors in the voice recognition software and differences in speech patterns. Thank you for allowing us to partake in the care of this patient. Pulmonary will continue to follow her as an outpatient. Present on Admission?: Yes (2) Hypoxia: (3) History of total left hip arthroplasty: (4) Diastolic heart failure: History of Present Illness Reason for Consultation: Hypoxemic respiratory failure Requesting Physician: Dr. Lowe Attending Physician: Estuardo Lowe MD History of Present Illness 78-year-old female with a history of degenerative joint disease who presented to the hospital due to increasing shortness of breath. Patient notes that over the last couple weeks to possibly months she has had increasing shortness of breath with exertion. 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 She has a pulse oximeter at home and notices that her oxygen saturation dropped to 85% on room air. Her was very ill and recently 2 months ago and that is why she has a pulse oximeter. She denies any significant current cough. She does endorse an occasional dry cough. No recent fevers or chills. Weight has been stable. She has 1 dog at home. No bird exposures. No open water sources. No recent travel. No sick contacts. 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 Her was a nail specialist. She is a non-smoker. Her mother had COPD and from lung disease because she was a heavy smoker. Her was also a heavy smoker. She underwent a left hip arthroplasty on 04/20/2019 and thinks that she may have declined from a respiratory standpoint since that period of time. I did speak with her [id number] over the phone who is a nurse practitioner at [employer] [facility] [employer] [facility] [employer] [employer] and indicated that her [id number]-jmj had a hip arthroplasty 10 years ago and had a similar decline at that point and underwent a CT of her chest at that time. I did review her prior chest imaging and in 2008 she indeed did have a CT of her chest which demonstrated lower lobe groundglass opacities. She also had subsequent chest x-rays which demonstrated increased interstitial markings. She underwent a CT of her chest yesterday with contrast to rule out pulmonary embolism given her recent hip arthroplasty and the CT chest was notable for bibasilar predominant honeycombing and diffuse sub-pleural reticular markings. No pulmonary embolism was identified. She has been receiving IV Solu-Medrol. She is currently saturating 94% on room air. Cardiology has evaluated the patient as well and recommended outpatient stress study. She underwent an echocardiogram which demonstrated normal ejection fraction and grade 1 diastolic dysfunction. Right ventricle currently appeared normal. She did not have leukocytosis on labs. She has been afebrile. She had a VBG performed on admission which demonstrated 7.42/45. She denies any joint aches other than her hip pain, sicca symptoms, gastroesophageal reflux, rashes, night sweats or weight loss. Allergies Allergy/AdvReac Type Severity Reaction Status Date / Time morphine AdvReac Mild N/V Verified 05/05/19 08:22 Home Medications Home Medications Medication Instructions Recorded Confirmed Type melatonin 5 mg PO HS PRN 03/30/19 06/20/19 History methylphenidate HCl [Ritalin] 10 mg PO BID PRN 03/30/19 06/20/19 History naproxen sodium [Aleve] 220 mg PO HS PRN 04/20/19 06/20/19 History pravastatin 20 mg PO HS 04/20/19 06/20/19 History aspirin [Ecotrin Low Strength] 0 mg PO DAILY PRN 06/20/19 06/20/19 History diphenhydramine-acetaminophen 1 tab PO HS PRN 06/20/19 06/20/19 History [Tylenol PM Extra Strength] hydrochlorothiazide 25 mg PO HS 06/20/19 06/20/19 History losartan 100 mg PO HS 06/20/19 06/20/19 History Patient History Medical History Degenerative joint disease of left hip Bilateral Hypertension Interstitial lung disease Suspected on previous chest imaging. +crackles in bases on exam at PAT. O2 94% on room air, patient asymptomatic. Kidney stones HX OF Surgical History History of cataract extraction with lens replacement (Acute) History of right hip replacement History of total left knee replacement Hx of cystoscopy WITH STONE BASKETING Social History Preferred Language: Bengali Communication Ability: Effective Beliefs That Will Affect Care: None marital status: / Current Living Situation: Family Other Information That Helps Us Care for You: No Feels Safe at Home: Yes Safety Concerns: Feels Safe At This Time Smoking Status: Never smoker Second Hand Exposure: No ; Hx Alcohol Use: No Hx Substance Use: No Review of Systems Review of Systems: All systems reviewed & are unremarkable except as noted in HPI & below Physical Exam Constitutional: WD/WN, vitals as above well developed Eyes: PERRL, conjunctivae normal, anicteric sclerae ENMT: external ear and nose normal, oropharynx normal Respiratory: Fine Velcro crackles noted on inspiration particularly in the lower lobes. Otherwise clear. Cardiovascular: RRR, no murmur, no edema Gastrointestinal (Abdomen): normal bowel sounds, soft, nontender, no hepatosplenomegaly Musculoskeletal: No peripheral cyanosis noted. She does have very mild clubbing. Skin: no rashes, warm and dry Neurologic: PERRL, EOMI, accommodation nl, no face palsy, no dysarthria Psychiatric: A+Ox3, euthymic affect Results & Data Results & Data ([facility]) Vital Signs (Past 12 Hours) Vital Signs Temp Pulse Pulse Pulse Pulse Pulse Resp 06/21/19 13:10 104 H 112 H 96 H 06/21/19 11:00 97.7 F 103 H 18 06/21/19 08:16 79 06/21/19 07:23 97.7 F 82 20 06/21/19 04:16 97.5 F L 86 18 Resp Resp Resp BP BP Pulse Ox Pulse Ox 06/21/19 13:10 18 18 16 90 06/21/19 11:00 161/81 H 90 06/21/19 08:16 06/21/19 07:23 154/101 H 93 06/21/19 04:16 109/68 94 Pulse Ox Pulse Ox 06/21/19 13:10 91 94 06/21/19 11:00 06/21/19 08:16 06/21/19 07:23 06/21/19 04:16 I personally reviewed her labs, chest imaging and previous notes. I also reviewed her echo. PG Care Time/CCT Total # of Minutes Spent Total Time Spent with Patient: Total time spent is greater than 50% in coordination of care (as documented) at patient's floor/unit and/or counseling patient: [place] [address] Initial Inpt Care Lvl 3 Patient Type New Diagnoses Interstitial lung disease J84.9 Hypoxia R09.02 History of total left hip arthroplasty Z96.642 Diastolic heart failure I50.30 Time Spent (min) 70
--- NOTE | 2019-06-21 14:14 | Discharge Summary ---
Date of Service June 21, 2019 Admission HPI Per Admitting Provider 78 year old female with history of Hypertension, HLD, Chronic Rhinitis, ADHD presenting with progressive shortness of breath associated with chest pain for several weeks. Patient states for the past several weeks, she has been experiencing shortness of breath with minimal exertion associated with progression of cough, productive of yellow phlegm which she has had for years, as well as chest discomfort- substernal, 'squeezing'. She uses her pulse oximeter after going up and down her stairs which shows 85%. Also reports sensation of "heartbeat skipping" with exertion. No fever/chills, no recent travels. Her daughter in law tested Negative for coronavirus 2 weeks ago. Progression of symptoms prompted ER consult. CT chest: 1. No pulmonary emboli identified. 2. Progression of basilar predominant subpleural reticulation, groundglass opacity and honeycombing consistent with interstitial lung disease with pulmonary fibrosis since CT of November 01, 2018. No superimposed consolidation. 3. Mild dilatation of the ascending aorta. No thoracic aortic dissection. Moderate cardiomegaly. Troponin: Negative EKG: no signs of acute ischemia On exam, patient seen resting in bed, comfortable, not in distress. States she feels fine resting but symptoms occur with minimal exertion. Denies active chest pain, dyspnea, dizziness, nausea. No other symptoms. Admission Exam Per Admitting Provider General- oriented x 3, not in distress, speaks in sentences with no effort or accessory muscle use Head- atraumatic Eyes- PERRL, EOMI, anicteric ENT- oropharynx clear Neck- supple, no JVD, no adenopathy, no thyromegaly; carotids +2/2, no bruits appreciated Lungs- (+) rales bilateral bases no wheezing Heart- normal rate, regular rhythm; no murmur, no gallop, no rub appreciated Abdomen- normal bowel sounds, nondistended, soft, nontender, no masses or hepatosplenomegaly Extremities- no pretibial edema, no calf tenderness; peripheral pulses intact Neuro- alert, oriented x 3; CN 2-12 grossly intact; motor 5/5 bilaterally; sensation 100% on all extremities; no other gross focal neurologic deficits Skin- warm & dry Principal Diagnosis EXERTIONAL DYSPNEA, likely SECONDARY TO IDIOPATHY PULMONARY FIBROSIS Discharge Exam General- oriented x 3, not in distress, speaks in sentences with no effort or accessory muscle use Eyes- anicteric Neck- no JVD Lungs- (+) fine crackles at the bases no wheezing Heart- normal rate, regular rhythm; no murmurs Abdomen- normal bowel sounds, nondistended, soft, nontender Extremities- no pretibial edema, no calf tenderness Neuro- alert, oriented x 3; no gross focal neurologic deficits Skin- warm & dry Discharge Data Allergies Allergy/AdvReac Type Severity Reaction Status Date / Time morphine AdvReac Mild N/V Verified 05/05/19 08:22 Consultations 06/20/19 12:38 ED Decision to Admit Stat 06/20/19 16:54 Consult Pulmonology Routine 06/20/19 18:30 Consult Cardiology Routine Ordered Studies 06/20/19 11:32 CT angio chest PE protocol Stat CT DOSE: 289.88 mGy.cm FINDINGS: No pulmonary emboli are identified. Mild dilatation of the ascending aorta, measuring 4.1 cm, is noted. There is no thoracic or dissection. Moderate cardiomegaly is noted. There is no pericardial effusion. Central airways are patent. No consolidation is present. There is no pneumothorax or pleural effusion. Note is made of basilar and peripheral predominant subpleural reticulation, groundglass opacity and honeycombing which has progressed since exam of November 01, 2018. Prominent mediastinal bilateral hilar lymph nodes are unchanged. Gallbladder is surgically absent. IMPRESSION: 1. No pulmonary emboli identified. 2. Progression of basilar predominant subpleural reticulation, groundglass opacity and honeycombing consistent with interstitial lung disease with pulmonar y fibrosis since CT of November 01, 2018. No superimposed consolidation. 3. Mild dilatation of the ascending aorta. No thoracic aortic dissection. Moderate cardiomegaly. 06/20/19 13:44 US venous doppler LE BI Stat FINDINGS: The bilateral common femoral, superficial femoral and popliteal veins were compressible. Augmentation was normal. Flow was shown within the deep calf vessels. Incidental note is made of a 4.5 x 2.1 x 1.1 cm left popliteal cyst. IMPRESSION: 1. No evidence of deep venous thrombus within the bilateral lower extremities. 2. 4.5 x 2.1 x 1.1 cm left popliteal cyst. Hospital Course (1) SHAH (dyspnea on exertion): Admission Date: 78 year old female with history of Hypertension, HLD, Chronic Rhinitis, ADHD presenting with progressive shortness of breath associated with chest pain for several weeks. EXERTIONAL DYSPNEA, HYPOXIA LIKELY SECONDARY TO IDIOPATHY PULMONARY FIBROSIS afebrile, no leukocytosis CT chest: 1. No pulmonary emboli identified. 2. Progression of basilar predominant subpleural reticulation, groundglass opacity and honeycombing consistent with interstitial lung disease with pulmonary fibrosis since CT of November 01, 2018. No superimposed consolidation. 3. Mild dilatation of the ascending aorta. No thoracic aortic dissection. Moderate cardiomegaly. Solumedrol 40mg IVq12h started 2 step exercise test performed on Hospital Day 2: no desaturation below 89%, does not meet criteria for oxygen supplementation evaluated by Quality Controller Dr. Leoncio GOLDEN serological testing to evaluate for rheumatological disease and vasculitis: Pending may benefit from pirfenidone or nintedanib will need outpatient pulmonary function testing and a 6-minute walk distance ff up with Dr. Fang- [facility] in 1-2 weeks CHEST PAIN, likely FROM DYSPNEA, SECONDARY TO ABOVE associated with exertion troponin x 3 negative, EKG no signs of acute ischemia echo: no left ventricular wall motion abnormality, EF 65-70%, Grade 1 diastolic dysfunction Bak[facility]per consulted- Dr. Banks, will consider outpatient Dobutamine Stress test ff up with Dr. Banks in 3-4 weeks ELEVATED D DIMER recent hip surgery 03/2019 CT chest: negative for PE Doppler US of the LE : negative for DVT HYPERTENSION HOLD Losartan, HCTZ as patient just received IV contrast replaced with Amlodipine 5mg for 2 days creatinine stable resume usual Losartan, HCTZ day after discharge DYSLIPIDEMIA continue Pravastatin ADHD continue Ritalin DVT Prophylaxis Lovenox SC given Disposition d/c home ff up with PCP in 1 week Quality Controller in 1-2 weeks [facility] in 3-4 weeks Total Time Total Time Spent Total Time Spent (In Minutes): 55 minutes Discharge Plan Discharge Items Patient Disposition: Home - Self-Care Reason For Visit: HYPOXIA, EXERTIONAL DYSPNEA Discharge Diagnosis: DYSPNEA ON EXERTION, INTERSTITIAL LUNG DISEASE Activity: As commented below Activity Comment: RESUME ACTIVITY GRADUALLY TOLERATED, NO HEAVY EXERTION Lifting: Wait until after follow-up appointment Exercise/Sports: Wait until after follow-up appointment Driving/Machine Use: NO DRIVING UNTIL RE-EVALUATED AND ALLOWED BY PRIMARY CARE PHYSICIAN Non-emergency contact: Primary Care Provider and Quality Controller Call non-emergency contact if: you have any medication questions, your symptoms worsen and you have a fever Follow-up/Referrals: Mikey Fang MD [Physician] - Tyrone Banks DO [[facility] Helper] - Frederick Mariee DO [Primary Care Provider] - Diet: Heart Healthy Addtl Attending Provider Instructions: YOUR NEW MEDICATION IS: PREDNISONE- oral steroid for interstitial lung disease; always with food RESUME TAKING LOSARTAN AND HYDROCHLOROTHIAZIDE TOMORROW. AVOID TAKING NSAID pain medications such as Aspirin, Ibuprofen, Naproxen, etc. to prevent kidney injury, stomach ulcers. DO NOT TAKE MORE THAN 3,000MG OF TYLENOL/ACETAMINOPHEN PER DAY. STAY WELL HYDRATED. CALL YOUR PRIMARY CARE PHYSICIAN OR RETURN TO THE ER IMMEDIATELY IF WITH WORSENING OF SYMPTOMS, INCLUDING SHORTNESS OF BREATH, DIZZINESS, CHEST PAIN, ABDOMINAL PAIN. FOLLOW UP WITH PRIMARY CARE PHYSICIAN IN 1 WEEK. FOLLOW UP WITH MAINTENANCE PERSON DR. FANG IN 1-2 WEEKS. PLEASE CALL HIS OFFICE FOR AN APPOINTMENT. FOLLOW UP WITH CLERICAL SPECIALIST DR. BANKS. PLEASE CALL HIS OFFICE FOR AN BRITNEY OINTMENT. Pending Studies at Discharge: Yes Studies:: RESULTS OF BLOODWORK DONE TO WORK UP INTERSTITIAL LUNG DISEASE - TO BE DISCUSSED WITH YOU ON YOUR FOLLOW UP VISIT WITH DR. FANG- MAINTENANCE PERSON Stand-Alone Forms: [facility] [employer], Smoking Cessation Medications and DC Order Prescriptions: New prednisone 20 mg tablet 40 mg PO DAILY Qty: 10 RF: 0 Continued methylphenidate HCl [Ritalin] 10 mg Tablet 10 mg PO BID PRN (Reason: FOCUSSING) RF: 0 melatonin 5 mg Tablet 5 mg PO HS PRN (Reason: Sleep) RF: 0 pravastatin 20 mg Tablet 20 mg PO HS RF: 0 hydrochlorothiazide 25 mg tablet 25 mg PO HS RF: 0 diphenhydramine-acetaminophen [Tylenol PM Extra Strength] 25-500 mg Tablet 1 tab PO HS PRN (Reason: Sleep and Pain) RF: 0 losartan 100 mg tablet 100 mg PO HS RF: 0 Discontinued naproxen sodium [Aleve] 220 mg Tablet 220 mg PO HS PRN (Reason: Pain) RF: 0 aspirin [Ecotrin Low Strength] 81 mg tablet,delayed release (DR/EC) 0 mg PO DAILY PRN (Reason: Other) RF: 0 Discharge Orders: Discharge Order (Routine); Ordered 06/21/19 Ordered By: Estuardo Lowe Admission Data Admit Date/Time: 06/20/19 13:44 Attending Provider: Estuardo Lowe Admit Provider: Estuardo Lowe Primary Care Provider: Frederick Mariee Other Providers: Estuardo Lowe ; Mikey Fang ; Tyrone Banks Other [place] Date/Time DO NOT enter until pt leaves facility: 06/21/19 14:42
[2019-06-21 14:49] LABS: Alanine Aminotransferase 27 U/L (12-78); Albumin Level 3.3 gm/dl (3.4-5.0); Alkaline Phosphatase 106 U/L (45-117); Aspartate Aminotransferase 17 U/L (15-37); Bilirubin Direct < 0.1 mg/dl (0-0.2); Bilirubin,Total 0.3 mg/dl (0.2-1); C Reactive Protein < 0.29 mg/dl (0-0.29); Creatine Kinase 89 U/L (26-192); Total Protein 7.3 gm/dl (6.4-8.2)
[2019-06-25 19:45] LABS: Anti-Centromere Ab <1.0 NEG AI (<1.0 NEG); Anti-Glom Basement Antibody <1.0 AI (<1.0); Anti-Neutrophil Antibody NONE DETECTED (NONE DETECTED); Anti-SS-A <1.0 NEG AI (<1.0 NEG); Anti-SS-B <1.0 NEG AI (<1.0 NEG); Anti-dsDNA Recombinant 12 IU/mL; JO 1 Antibody <1.0 NEG AI (<1.0 NEG); Proteinase-3 Ab <1.0 AI; RNP Antibody <1.0 NEG AI (<1.0 NEG); Rheumatoid Factor <14 IU/mL (<14); Scleroderma Anti Scl-70 Ab <1.0 NEG AI (<1.0 NEG); Sm Antibody <1.0 NEG AI (<1.0 NEG)
== END 2019-06-21 14:42 | disposition home or self-care (01) | DRG 197 ==
LOC: ED 10:27 → 2N 13:44